=== PATIENT | female | born 1985 | race Caucasian/White ===

== ENCOUNTER 2018-10-14 15:09 | Emergency (ER) | payer MEDICARE, OTHER ==
[2018-10-14 15:19] VITALS: RESP 18; TEMP 97.8
[2018-10-14] MEDS ORDERED: SODIUM CHLORIDE 0.9% 1,000 ML IV STA ×2 (15:46)
[2018-10-14 16:15] LABS: Basophils % (A) 0 %; Eosinophils # (A) 0.1 k/uL (0-0.7); Eosinophils % (A) 1 %; HCT 47.1 % (34.0-46.0); HGB 15.1 gm/dL (11.4-16.0); Lymphocytes # (A) 1.6 k/uL (1.0-4.8); Lymphocytes % (A) 15 %; MCH 33.8 pg (25.0-35.0); MCHC 32.1 g/dL (31.0-37.0); MCV 105.3 fL (80.0-100.0); Macrocytosis Moderate; Mean Platelet Volume 7.9; Monocytes # (A) 0.5 k/uL (0-1.0); Monocytes % (A) 5 %; Neutrophils # (A) 8.3 k/uL (1.3-7.7); Neutrophils % (A) 79 %; Platelet Count 383 k/uL (150-450); RBC 4.47 m/uL (3.80-5.40); RDW 14.1 % (11.5-15.5); WBC 10.6 k/uL (3.8-10.6)
--- NOTE | 2018-10-14 16:18 | ED ---
Seizure HPI - General Chief Complaint: Seizure Stated Complaint: Seizure Time Seen by Provider: 10/14/18 15:26 Source: patient, RN notes reviewed, old records reviewed Mode of arrival: EMS Limitations: no limitations - History of Present Illness Initial Comments: Patient is a 33-year-old female with history of seizure disorder. She presents today after 2 seizures today. She states he quite some time. She denies any fevers or chills. She has had a slight cough. Patient reports she takes Lamictal and Dilantin. She's been taking her medications as prescribed. - Related Data Home Medications Medication Instructions Recorded Confirmed lamoTRIgine [LaMICtal] 200 mg PO BID 11/22/15 10/14/18 Phenytoin Chew [Dilantin Chew] 300 mg PO BID 05/02/16 10/14/18 Allergies Allergy/AdvReac Type Severity Reaction Status Date / Time No Known Allergies Allergy Verified 10/14/18 15:31 Review of Systems ROS Statement: Those systems with pertinent positive or pertinent negative responses have been documented in the HPI. ROS Other: All systems not noted in ROS Statement are negative. Past Medical History Past Medical History: COPD, GERD/Reflux, Musculoskeletal Disorder, Os teoarthritis (OA), Seizure Disorder Additional Past Medical History / Comment(s): BACK PAIN History of Any Multi-Drug Resistant Organisms: None Reported Past Surgical History: Tubal Ligation Additional Past Surgical History / Comment(s): TOOTH EXTRACTIONS(HAD BROKEN TEETH AFTER A FALL DURING A SEIZURE HAD THOSE TEETH REMOVED) Past Anesthesia/Blood Transfusion Reactions: No Reported Reaction Past Psychological History: Anxiety Smoking Status: Current every day smoker Past Alcohol Use History: None Reported Past Drug Use History: Marijuana - Past Family History Father Family Medical History: No Reported History (Father is 59-year-old has no major medical problems) Mother Family Medical History: No Reported History (Mother is 55-year-old has history of chronic low back pain.) Brother(s) Family Medical History: No Reported History (Patient has 2 brothers no major medical problems) Sister(s) Family Medical History: No Reported History (Patient has 2 sisters no major medical problems) Son(s) Family Medical History: No Reported History (Patient has a natural son and 2 adopted sons.) Daughter(s) Family Medical History: No Reported History (Patient has a biological daughter.) Additional Family Medical History / Comment(s): Paternal grandmother from compilations of diabetes. General Exam - General Exam Comments Initial Comments: This is a 33-year-old female. Alert and oriented and 3. She is somewhat postictal. Lethargic. Limitations: no limitations Head exam: Present: atraumatic, normocephalic, normal inspection Eye exam: Present: normal appearance, PERRL, EOMI. Absent: scleral icterus, conjunctival injection, periorbital swelling ENT exam: Present: normal exam, mucous membranes moist Neck exam: Present: normal inspection. Absent: tenderness, meningismus, lymphadenopathy Respiratory exam: Present: normal lung sounds bilaterally. Absent: respiratory distress, wheezes, rales, rhonchi, stridor Cardiovascular Exam: Present: regular rate, normal rhythm, normal heart sounds. Absent: systolic murmur, diastolic murmur, rubs, gallop, clicks GI/Abdominal exam: Present: soft, normal bowel sounds. Absent: distended, tenderness, guarding, rebound, rigid Extremities exam: Present: normal inspection, full ROM, normal capillary refill. Absent: tenderness, pedal edema, joint swelling, calf tenderness Back exam: Present: normal inspection Neurological exam: Present: alert, oriented X3, CN II-XII intact Psychiatric exam: Present: normal affect, normal mood Course Vital Signs 10/14/18 10/14/18 10/14/18 15:11 18:23 19:00 Temperature 97.8 F 97.8 F Pulse Rate 87 60 60 Respiratory 18 18 18 Rate Blood Pressure 125/67 106/61 106/61 O2 Sat by Pulse 96 97 97 Oximetry Medical Decision Making - Medical Decision Making Patient is a 33-year-old female who presents emergency Department after seizure. She is currently managing her seizures with Dilantin and Lamictal. Patient states that she hasn't taking her medicine as prescribed. Currently her Dilantin level is undetected and blood. Discussed that this could be consistent with noncompliant with medication. Patient's abdomen she is taking it. Patient lab work and x-rays and CT were otherwise unremarkable. Patient was discharged home with up with her neurologist. Discussed taking Dilantin appropriately. Given 1 dose here in ER. - Lab Data Result diagrams: 10/14/18 15:10 03/26/19 15:10 Lab Results 10/14/18 10/14/18 10/14/18 Range/Units 15:10 15:10 15:10 WBC 10.6 (3.8-10.6) k/uL RBC 4.47 (3.80-5.40) m/uL Hgb 15.1 (11.4-16.0) gm/dL Hct 47.1 H (34.0-46.0) % MCV 105.3 H (80.0-100.0) fL MCH 33.8 (25.0-35.0) pg MCHC 32.1 (31.0-37.0) g/dL RDW 14.1 (11.5-15.5) % Plt Count 383 (150-450) k/uL Neutrophils % 79 % Lymphocytes % 15 % Monocytes % 5 % Eosinophils % 1 % Basophils % 0 % Neutrophils # 8.3 H (1.3-7.7) k/uL Lymphocytes # 1.6 (1.0-4.8) k/uL Monocytes # 0.5 (0-1.0) k/uL Eosinophils # 0.1 (0-0.7) k/uL Basophils # 0.0 (0-0.2) k/uL Macrocytosis Moderate Sodium 139 (137-145) mmol/L Potassium 4.7 (3.5-5.1) mmol/L Chloride 109 H (98-107) mmol/L Carbon Dioxide 21 L (22-30) mmol/L Anion Gap 9 mmol/L BUN 11 (7-17) mg/dL Creatinine 0.51 L (0.52-1.04) mg/dL Est GFR (CKD-EPI)AfAm >90 (>60 ml/min/1.73 sqM) Est GFR (CKD-EPI)NonAf >90 (>60 ml/min/1.73 sqM) Glucose 89 (74-99) mg/dL Calcium 9.2 (8.4-10.2) mg/dL Total Bilirubin 0.7 (0.2-1.3) mg/dL AST 21 (14-36) U/L ALT 15 (9-52) U/L Alkaline Phosphatase 106 (38-126) U/L Total Protein 7.6 (6.3-8.2) g/dL Albumin 4.0 (3.5-5.0) g/dL Urine Color Urine Appearance (Clear) Urine pH (5.0-8.0) Ur Specific [place] (1.001-1.035) Urine Protein (Negative) Urine Glucose (UA) (Negative) Urine Ketones (Negative) Urine Blood (Negative) Urine Nitrite (Negative) Urine Bilirubin (Negative) Urine Urobilinogen (<2.0) mg/dL Ur Leukocyte Esterase (Negative) Urine RBC (0-5) /hpf Urine WBC (0-5) /hpf Ur Squamous Epith Cells (0-4) /hpf Urine Mucus (None) /hpf Urine Opiates Screen (NotDetected) Ur Oxycodone Screen (NotDetected) Urine Methadone Screen (NotDetected) Ur Propoxyphene Screen (NotDetected) Ur Barbiturates Screen (NotDetected) Phenytoin <3.0 ug/mL Lamotrigine 0.7 L (2.0-15.0) ug/mL U Tricyclic Antidepress (NotDetected) Ur Phencyclidine Scrn (NotDetected) Ur Amphetamines Screen (NotDetected) U Methamphetamines Scrn (NotDetected) U Benzodiazepines Scrn (NotDetected) Urine Cocaine Screen (NotDetected) U Marijuana (THC) Screen (NotDetected) Serum Alcohol <10 mg/dL 10/14/18 Range/Units 16:57 WBC (3.8-10.6) k/uL RBC (3.80-5.40) m/uL Hgb (11.4-16.0) gm/dL Hct (34.0-46.0) % MCV (80.0-100.0) fL MCH (25.0-35.0) pg MCHC (31.0-37.0) g/dL RDW (11.5-15.5) % Plt Count (150-450) k/uL Neutrophils % % Lymphocytes % % Monocytes % % Eosinophils % % Basophils % % Neutrophils # (1.3-7.7) k/uL Lymphocytes # (1.0-4.8) k/uL Monocytes # (0-1.0) k/uL Eosinophils # (0-0.7) k/uL Basophils # (0-0.2) k/uL Macrocytosis Sodium (137-145) mmol/L Potassium (3.5-5.1) mmol/L Chloride (98-107) mmol/L Carbon Dioxide (22-30) mmol/L Anion Gap mmol/L BUN (7-17) mg/dL Creatinine (0.52-1.04) mg/dL Est GFR (CKD-EPI)AfAm (>60 ml/min/1.73 sqM) Est GFR (CKD-EPI)NonAf (>60 ml/min/1.73 sqM) Glucose (74-99) mg/dL Calcium (8.4-10.2) mg/dL Total Bilirubin (0.2-1.3) mg/dL AST (14-36) U/L ALT (9-52) U/L Alkaline Phosphatase (38-126) U/L Total Protein (6.3-8.2) g/dL Albumin (3.5-5.0) g/dL Urine Color Yellow Urine Appearance Turbid H (Clear) Urine pH 5.5 (5.0-8.0) Ur Specific [place] 1.031 (1.001-1.035) Urine Protein Trace H (Negative) Urine Glucose (UA) Negative (Negative) Urine Ketones 2+ H (Negative) Urine Blood Trace H (Negative) Urine Nitrite Negative (Negative) Urine Bilirubin Negative (Negative) Urine Urobilinogen <2.0 (<2.0) mg/dL Ur Leukocyte Esterase Negative (Negative) Urine RBC 4 (0-5) /hpf Urine WBC 3 (0-5) /hpf Ur Squamous Epith Cells 2 (0-4) /hpf Urine Mucus Many H (None) /hpf Urine Opiates Screen Not Detected (NotDetected) Ur Oxycodone Screen Not Detected (NotDetected) Urine Methadone Screen Not Detected (NotDetected) Ur Propoxyphene Screen Not Detected (NotDetected) Ur Barbiturates Screen Detected H (NotDetected) Phenytoin ug/mL Lamotrigine (2.0-15.0) ug/mL U Tricyclic Antidepress Not Detected (NotDetected) Ur Phencyclidine Scrn Not Detected (NotDetected) Ur Amphetamines Screen Not Detected (NotDetected) U Methamphetamines Scrn Not Detected (NotDetected) U Benzodiazepines Scrn Not Detected (NotDetected) Urine Cocaine Screen Not Detected (NotDetected) U Marijuana (THC) Screen Detected H (NotDetected) Serum Alcohol mg/dL 10/14/18 16:21 EKG shows normal sinus rhythm with sinus arrhythmia, possible left atrial enlargement. Borderline EKG. Ventricular rate of 76 bpm. NH interval is 140 ms. QRS duration 100 ms. QT QTC 394/[address] elevation or T-wave inversi on. - Radiology Data Radiology results: report reviewed Negative CT of the brain. Left maxillary sinusitis. No changes. Normal chest x-ray. Disposition Clinical Impression: Generalized seizure, Subtherapeutic serum dilantin level Disposition: HOME SELF-CARE Condition: Good Instructions (If sedation given, give patient instructions): Recurrent Seizures in Adults (ED) Additional Instructions: Patient advised to follow-up with your primary care physician and your neurologist. Continue to take her medications as prescribed. Return to emergency department if any alarming signs or symptoms occur. Is patient prescribed a controlled substance at d/c from ED?: No Referrals: Raiza Aguila MD [Primary Care Provider] - 1-2 days Time of Disposition: 18:24
[2018-10-14 16:23] LABS: ALT 15 U/L (9-52); AST 21 U/L (14-36); Alcohol <10 mg/dL; Alkaline Phosphatase 106 U/L (38-126); Anion Gap 9 mmol/L; Blood Urea Nitrogen 11 mg/dL (7-17); Calcium 9.2 mg/dL (8.4-10.2); Carbon Dioxide 21 mmol/L (22-30); Chloride 109 mmol/L (98-107); Glucose 89 mg/dL (74-99); Phenytoin (Dilantin) <3.0 ug/mL; Potassium 4.7 mmol/L (3.5-5.1); Sodium 139 mmol/L (137-145); Total Bilirubin 0.7 mg/dL (0.2-1.3); Total Protein 7.6 g/dL (6.3-8.2)
--- NOTE | 2018-10-14 17:17 | XR ---
EXAMINATION TYPE: XR chest 2V DATE OF EXAM: 10/14/2018 COMPARISON: NONE HISTORY: Seizure TECHNIQUE: Frontal and lateral views of the chest are obtained. FINDINGS: Heart and mediastinum are normal. Lungs are clear. Diaphragm is normal. Bony thorax appear s normal. IMPRESSION: Normal chest
--- NOTE | 2018-10-14 17:24 | CT ---
EXAMINATION TYPE: CT brain wo con DATE OF EXAM: 10/14/2018 COMPARISON: 11/22/2015 HISTORY: TANO Samuels CT DLP: 1082.4 mGycm. Automated Exposure Control for Dose Reduction was Utilized. TECHNIQUE: CT scan of the head is performed without contrast. FINDINGS: Ventricles and sulci appear normal. There is no mass effect nor midline shift. There is no sign of intracranial hemorrhage. Calvarium is intact. There is mucosal thickening left maxillary sinu s with apparent previous surgery. IMPRESSION: Negative CT scan of the brain. Left maxillary sinusitis. No change.
[2018-10-14] MEDS ORDERED: PHENYTOIN 50 MG CHEWABLE PO STA (18:20)
[2018-10-14 18:24] VITALS: BP 106/61; PULSE 60
[2018-10-14] MEDS ORDERED: PHENYTOIN ORAL SUSP 100 MG/4 ML CUP PO STA (18:36)
[2018-10-14 19:00] LABS: Appearance,Urine Turbid (Clear); Bilirubin,Urine Negative (Negative); Blood,Urine Trace (Negative); Color,Urine Yellow; Glucose,Urine (UA) Negative (Negative); Ketones,Urine 2+ (Negative); Leukocyte Esterase,Urine Negative (Negative); Mucus,Urine Many /hpf; Nitrite,Urine Negative (Negative); PH, Urine 5.5 (5.0-8.0); Protein,Urine Trace (Negative); RBC,Urine 4 /hpf (0-5); Specific Gravity,Urine 1.031 (1.001-1.035); Squamous Epithelial Cell,Urine 2 /hpf (0-4); Urobilinogen,Urine <2.0 mg/dL (<2.0)
[2018-10-14 19:01] LABS: Amphetamine Screen,Urine Not Detected (NotDetected); Barbiturate Screen,Urine Detected (NotDetected); Benzodiazepines Screen,Urine Not Detected (NotDetected); Cocaine Screen,Urine Not Detected (NotDetected); Methadone Screen, Urine Not Detected (NotDetected); Opiate Screen,Urine Not Detected (NotDetected); Oxycodone Screen, Urine Not Detected (NotDetected); Phencyclidine Screen,Urine Not Detected (NotDetected); Tricyclic Antidepressant,Urine Not Detected (NotDetected); Urn Cannabinoid Scrn Detected (NotDetected)
== END 2018-10-14 19:00 | disposition home or self-care (01) ==
LOC: EC 15:09
DX: G40.409 Other generalized epilepsy and epileptic syndromes, not intractable, without status epilepticus (principal); R79.89 Other specified abnormal findings of blood chemistry; F17.200 Nicotine dependence, unspecified, uncomplicated; Z79.899 Other long term (current) drug therapy; Z53.8 Procedure and treatment not carried out for other reasons
CPT/HCPCS: 36415; 93005; 80053; 80175; 80185; 85025; 81001; 80306; 71046; 70450; 99285; 96360; 96361 ×2; G0480; 80320

== ENCOUNTER 2019-02-21 02:11 | Emergency (ER) | payer MEDICARE, OTHER ==
[2019-02-21 02:21] VITALS: TEMP 98
[2019-02-21 02:45] LABS: Glucose,Whole Blood 104 mg/dL (75-99)
[2019-02-21] MEDS ORDERED: LORazepam 2 MG/ML INJ IV STA (02:59)
[2019-02-21] MEDS ORDERED: SODIUM CHLORIDE 0.9% 1,000 ML IV ONE (03:04)
--- NOTE | 2019-02-21 03:04 | ED ---
Seizure HPI - General Chief Complaint: Seizure Stated Complaint: Seizure Time Seen by Provider: 02/21/19 02:23 Source: patient, family (Significant other) Mode of arrival: ambulatory Limitations: no limitations - History of Present Illness Initial Comments: This patient is 33-year-old woman with history of seizure disorder who presents to be evaluated after she had 2 seizures tonight. The patient states that she takes Dilantin and Lamictal for her seizure disorder. She states she has been compliant with her regimen. The patient has approximately one seizure per month even when compliant with her medication. Tonight she had one seizure around 1 2:30 AM, and then had returned to baseline and gone back to sleep. At around 1:30 AM she had a another seizure, and has reportedly returned to baseline again. Patient denies any trauma. She is not having headache, fever or chills or any neurologic symptoms. The patient's significant other does state that she has been under a lot of stress and that this sometimes provokes her to have seizures. MD Complaint: seizure Onset/Timin -: hour(s) Description of Episode: loss of consciousness, tonic-clonic movement, post-event confusion Duration of Episode: 1 -: minutes(s) Witnessed: yes - by bystander Trauma: No Seizure History: known seizure disorder Place: home Possible Precipitating Event: stress Associated Symptoms: denies other symptoms Treatments Prior to Arrival: none - Related Data Home Medications Medication Instructions Recorded Confirmed lamoTRIgine [LaMICtal] 200 mg PO BID 11/22/15 10/14/18 Phenytoin Chew [Dilantin Chew] 300 mg PO BID 05/02/16 10/14/18 Allergies Allergy/AdvReac Type Severity Reaction Status Date / Time No Known Allergies Allergy Verified 02/21/19 02:20 Review of Systems ROS Statement: Those systems with pertinent positive or pertinent negative responses have been documented in the HPI. ROS Other: All systems not noted in ROS Statement are negative. Constitutional: Denies: fever, chills, weakness Eyes: Denies: eye pain, vision change Respiratory: Denies: cough, dyspnea Cardiovascular: Denies: chest pain, syncope Gastrointestinal: Denies: abdominal pain, vomiting, diarrhea Genitourinary: Denies: dysuria, hematuria Musculoskeletal: Denies: back pain Skin: Denies: rash Neurological: Denies: headache, weakness, numbness, paresthesias, confusion Past Medical History Past Medical History: COPD, GERD/Reflux, Musculoskeletal Disorder, Osteoarthritis (OA), Seizure Disorder Additional Past Medical History / Comment(s): BACK PAIN History of Any Multi-Drug Resistant Organisms: None Reported Past Surgical History: Tubal Ligation Additional Past Surgical History / Comment(s): TOOTH EXTRACTIONS(HAD BROKEN TEETH AFTER A FALL DURING A SEIZURE HAD THOSE TEETH REMOVED) Past Anesthesia/Blood Transfusion Reactions: No Reported Reaction Past Psychological History: Anxiety Smoking Status: Current every day smoker Past Alcohol Use History: None Reported Past Drug Use History: Marijuana - Past Family History Father Family Medical History: No Reported History (Father is 59-year-old has no major medical problems) Mother Family Medical History: No Reported History (Mother is 55-year-old has history of chronic low back pain.) Brother(s) Family Medical History: No Reported History (Patient has 2 brothers no major medical problems) Sister(s) Family Medical History: No Reported History (Patient has 2 sisters no major medical problems) Son(s) Family Medical History: No Reported History (Patient has a natural son and 2 adopted sons.) Daughter(s) Family Medical History: No Reported History (Patient has a biological daughter.) Additional Family Medical History / Comment(s): Paternal grandmother from compilations of diabetes. General Exam Limitations: no limitations General appearance: alert, in no apparent distress Head exam: Present: atraumatic, normocephalic Eye exam: Present: normal appearance, PERRL, EOMI. Absent: scleral icterus, conjunctival injection, nystagmus ENT exam: Present: normal oropharynx Neck exam: Present: normal inspection, full ROM. Absent: tenderness, meningis mus Respiratory exam: Present: normal lung sounds bilaterally. Absent: respiratory distress, wheezes, rales, rhonchi, stridor Cardiovascular Exam: Present: regular rate, normal rhythm, normal heart sounds. Absent: systolic murmur, diastolic murmur, rubs, gallop GI/Abdominal exam: Present: soft. Absent: distended, tenderness, guarding, rebound, rigid, mass Extremities exam: Present: normal inspection, normal capillary refill. Absent: pedal edema, calf tenderness Back exam: Present: normal inspection. Absent: CVA tenderness (R), CVA tenderness (L) Neurological exam: Present: alert, oriented X3, CN II-XII intact. Absent: motor sensory deficit Skin exam: Present: warm, dry, intact, normal color. Absent: rash Course Vital Signs 02/21/19 02/21/19 02:15 03:59 Temperature 98 F Pulse Rate 83 82 Respiratory 18 16 Rate Blood Pressure 123/73 135/74 O2 Sat by Pulse 97 97 Oximetry Medical Decision Making - Medical Decision Making Patient had a generalized tonic-clonic seizure in the department, that lasted for 45 seconds. The patient was given Ativan. - Lab Data Result diagrams: 02/21/19 02:44 02/21/19 02:44 Lab Results 02/21/19 02/21/19 02/21/19 Range/Units 02:44 02:44 02:44 WBC 8.6 (3.8-10.6) k/uL RBC 3.97 (3.80-5.40) m/uL Hgb 13.9 (11.4-16.0) gm/dL Hct 41.9 (34.0-46.0) % MCV 105.4 H (80.0-100.0) fL MCH 35.0 (25.0-35.0) pg MCHC 33.2 (31.0-37.0) g/dL RDW 14.8 (11.5-15.5) % Plt Count 310 (150-450) k/uL Neutrophils % 78 % Lymphocytes % 15 % Monocytes % 5 % Eosinophils % 1 % Basophils % 0 % Neutrophils # 6.7 (1.3-7.7) k/uL Lymphocytes # 1.3 (1.0-4.8) k/uL Monocytes # 0.4 (0-1.0) k/uL Eosinophils # 0.1 (0-0.7) k/uL Basophils # 0.0 (0-0.2) k/uL Macrocytosis Moderate Sodium 140 (137-145) mmol/L Potassium 3.8 (3.5-5.1) mmol/L Chloride 106 (98-107) mmol/L Carbon Dioxide 26 (22-30) mmol/L Anion Gap 8 mmol/L BUN 10 (7-17) mg/dL Creatinine 0.66 (0.52-1.04) mg/dL Est GFR (CKD-EPI)AfAm >90 (>60 ml/min/1.73 sqM) Est GFR (CKD-EPI)NonAf >90 (>60 ml/min/1.73 sqM) Glucose 102 H (74-99) mg/dL POC Glucose (mg/dL) 104 H (75-99) mg/dL POC Glu [employer] ID [place] Calcium 8.6 (8.4-10.2) mg/dL Total Bilirubin 0.2 (0.2-1.3) mg/dL AST 14 (14-36) U/L ALT 8 L (9-52) U/L Alkaline Phosphatase 116 (38-126) U/L Total Protein 7.0 (6.3-8.2) g/dL Albumin 3.6 (3.5-5.0) g/dL Phenytoin 9.0 ug/mL - EKG Data -: EKG Interpreted by [facility] EKG shows normal: sinus rhythm, axis (Normal), intervals (Normal), ST-T waves (Normal) Rate: normal (Rate 81 bpm) Interpretation: other (Possible old anterior infarct) Disposition Clinical Impression: Generalized seizure Disposition: HOME SELF-CARE Condition: Good Instructions (If sedation given, give patient instructions): Recurrent Seizures in Adults (ED) Is patient prescribed a controlled substance at d/c from ED?: No Referrals: Raiza Aguila MD [Primary Care Provider] - 1-2 days
[2019-02-21 03:44] LABS: Basophils % (A) 0 %; Eosinophils # (A) 0.1 k/uL (0-0.7); Eosinophils % (A) 1 %; HCT 41.9 % (34.0-46.0); HGB 13.9 gm/dL (11.4-16.0); Lymphocytes # (A) 1.3 k/uL (1.0-4.8); Lymphocytes % (A) 15 %; MCHC 33.2 g/dL (31.0-37.0); MCV 105.4 fL (80.0-100.0); Macrocytosis Moderate; Mean Platelet Volume 7.1; Monocytes # (A) 0.4 k/uL (0-1.0); Monocytes % (A) 5 %; Neutrophils # (A) 6.7 k/uL (1.3-7.7); Neutrophils % (A) 78 %; Platelet Count 310 k/uL (150-450); RBC 3.97 m/uL (3.80-5.40); RDW 14.8 % (11.5-15.5); WBC 8.6 k/uL (3.8-10.6)
[2019-02-21 03:45] LABS: ALT 8 U/L (9-52); AST 14 U/L (14-36); African American GFR (CKD) >90 (>60 ml/min/1.73 sqM); Albumin 3.6 g/dL (3.5-5.0); Alkaline Phosphatase 116 U/L (38-126); Anion Gap 8 mmol/L; Blood Urea Nitrogen 10 mg/dL (7-17); Calcium 8.6 mg/dL (8.4-10.2); Carbon Dioxide 26 mmol/L (22-30); Chloride 106 mmol/L (98-107); Glucose 102 mg/dL (74-99); Potassium 3.8 mmol/L (3.5-5.1); Sodium 140 mmol/L (137-145); Total Bilirubin 0.2 mg/dL (0.2-1.3)
[2019-02-21 04:00] VITALS: RESP 16
[2019-02-21] MEDS ORDERED: PHENYTOIN SODIUM INJ 50 MG/ML 2 ML VIAL IV STA (04:04)
[2019-02-21] MEDS ORDERED: PHENYTOIN SODIUM INJ 400 MG in SODIUM CHLORIDE 0.9% 100 ML IVPB STA (04:06)
[2019-02-21 05:47] VITALS: BP 130/70; PULSE 87
== END 2019-02-21 05:43 | disposition home or self-care (01) ==
LOC: EC 02:11
DX: G40.409 Other generalized epilepsy and epileptic syndromes, not intractable, without status epilepticus (principal); F17.200 Nicotine dependence, unspecified, uncomplicated; Z79.899 Other long term (current) drug therapy
CPT/HCPCS: 36415; 80053; 80175; 80185; 85025; 99284; 96365; 96375; 96361; J2060; J1165

== ENCOUNTER 2022-12-04 19:00 | Emergency (ER) | payer MEDICARE, OTHER ==
[2022-12-04 19:26] VITALS: BP 158/96; PULSE 81; RESP 18; TEMP 97.3
--- NOTE | 2022-12-04 20:23 | ED ---
Extremity Problem HPI - General Source: patient, RN notes reviewed Mode of arrival: ambulatory Limitations: no limitations - History of Present Illness MD Complaint: extremity swelling <Jennifer Rivas - Last Filed: 12/04/22 20:23> - General Source: patient, RN notes reviewed Mode of arrival: ambulatory Limitations: no limitations <Marcie Foster - Last Filed: 12/04/22 23:11> - General Chief complaint: Extremity Problem,Nontraumatic Stated complaint: RT LEG BLOOD FLOW COMP Time Seen by Provider: 12/04/22 20:20 - History of Present Illness Initial comments: This is a 37-year-old female who presents to the emergency department for right leg swelling. She is concerned about a DVT. Denies any history of blood clots. Also denies any recent injuries, chest pain, or shortness of breath. (Jennifer Rivas) 37-year-old female presents to the emergency department with chief complaint of right lower leg swelling. She states that it started earlier today. She states that she occasionally gets swelling around the knee but has not had swelling going down the leg like this before. She states it is mildly painful at the knee. The leg is not erythematous. Denies history of DVT. Denies fever, chills. Denies shortness of breath. Past medical history includes epilepsy. (Marcie Foster) - Related Data Home Medications Medication Instructions Recorded Confirmed lamoTRIgine [LaMICtal] 200 mg PO BID 11/22/15 10/14/18 Phenytoin Chew [Dilantin Chew] 300 mg PO BID 05/02/16 10/14/18 Allergies Allergy/AdvReac Type Severity Reaction Status Date / Time No Known Allergies Allergy Verified 12/04/22 19:22 Review of Systems ROS Other: All systems not noted in ROS Statement are negative. <Jennifer Rivas - Last Filed: 12/04/22 20:23> ROS Other: All systems not noted in ROS Statement are negative. <Marcie Foster - Last Filed: 12/04/22 23:11> ROS Statement: Those systems with pertinent positive or pertinent negative responses have been documented in the HPI. Past Medical History Past Medical History: COPD, GERD/Reflux, Musculoskeletal Disorder, Osteoarthritis (OA), Seizure Disorder Additional Past Medical History / Comment(s): BACK PAIN History of Any Multi-Drug Resistant Organisms: None Reported Past Surgical History: Tubal Ligation Additional Past Surgical History / Comment(s): TOOTH EXTRACTIONS(HAD BROKEN TEETH AFTER A FALL DURING A SEIZURE HAD THOSE TEETH REMOVED) Past Anesthesia/Blood Transfusion Reactions: No Reported Reaction Past Psychological History: Anxiety Smoking Status: Current every day smoker Past Alcohol Use History: None Reported Past Drug Use History: Marijuana - Past Family History Father Family Medical History: No Reported History (Father is 59-year-old has no major medical problems) Mother Family Medical History: No Reported History (Mother is 55-year-old has history of chronic low back pain.) Brother(s) Family Medical History: No Reported History (Patient has 2 brothers no major medical problems) Sister(s) Family Medical History: No Reported History (Patient has 2 sisters no major medical problems) Son(s) Family Medical History: No Reported History (Patient has a natural son and 2 adopted sons.) Daughter(s) Family Medical History: No Reported History (Patient has a biological daughter.) Additional Family Medical History / Comment(s): Paternal grandmother from compilations of diabetes. <Jennifer Rivas - Last Filed: 12/04/22 20:23> General Exam Limitations: no limitations <Jennifer Rivas - Last Filed: 12/04/22 20:23> Limitations: no limitations General appearance: alert, in no apparent distress Head exam: Present: atraumatic, normocephalic, normal inspection Eye exam: Present: normal appearance ENT exam: Present: normal exam, mucous membranes moist Neck exam: Present: normal inspection. Absent: tenderness, meningismus, lympha denopathy Respiratory exam: Present: normal lung sounds bilaterally. Absent: respiratory distress, wheezes, rales, rhonchi, stridor Cardiovascular Exam: Present: regular rate, normal rhythm, normal heart sounds. Absent: systolic murmur, diastolic murmur, rubs, gallop, clicks GI/Abdominal exam: Present: soft, normal bowel sounds. Absent: distended, tenderness, guarding, rebound, rigid Extremities exam: Present: other (Right lower extremity edema, full ROM, DP pulses 2+, mild tenderness at the knee joint, popliteal cyst palpable at complete extension of right extremity) Back exam: Present: normal inspection Neurological exam: Present: alert, oriented X3 Psychiatric exam: Present: normal affect, normal mood Skin exam: Present: warm, dry, intact, normal color. Absent: rash <Marcie Foster - Last Filed: 12/04/22 23:11> - General Exam Comments Initial Comments: Visual Physical Exam Vital signs reviewed General: Well-appearing, nontoxic, no acute distress. Head: Normocephalic, atraumatic Eyes: PERRLA, EOMI ENT: Airway patent Chest: Nonlabored breathing Skin: No visual rash, normal skin tone Neuro: Alert and oriented 3 Musculoskeletal: No gross abnormalities (Vogley,Jennifer) Course Vital Signs 12/04/22 19:23 Temperature 97.3 F L Pulse Rate 81 Respiratory 18 Rate Blood Pressure 158/96 O2 Sat by Pulse 98 Oximetry Medical Decision Making <CaseychristenMarcie dawkins - Last Filed: 12/04/22 23:11> - Medical Decision Making Was pt. sent in by a medical professional or institution (, PA, [employer], urgent care, hospital, or usp...) When possible be specific @ -No Did you speak to anyone other than the patient for history (EMS, parent, family, police, friend...)? What history was obtained from this source @ -No Did you review nursing and triage notes (agree or disagree)? Why? @ -I reviewed and agree with nursing and triage notes Were old charts reviewed (outside hosp., previous admission, EMS record, old EKG, old radiological studies, urgent care reports/EKG's, usp records)? Report findings @ -No old charts were reviewed Differential Diagnosis (chest pain, altered mental status, abdominal pain women, abdominal pain men, vaginal bleeding, weakness, fever, dyspnea, syncope, headache, dizziness, GI bleed, back pain, seizure, CVA, palpatations, mental health, musculoskeletal)? @ -DVT, cellulitis, heart failure, liver failure, this list is not all i nclusive EKG interpreted by me (3pts min.). @ -None X-rays interpreted by me (1pt min.). @ -Chest x-ray obtained which show no acute cardiopulmonary process CT interpreted by me (1pt min.). @ -None done U/S interpreted by me (1pt. min.). @ -Ultrasound of right lower extremity showed no DVT, large popliteal cyst What testing was considered but not performed or refused? (CT, X-rays, U/S, labs)? Why? @ -None What meds were considered but not given or refused? Why? @ -None Did you discuss the management of the patient with other professionals (bakari caal i.e. , PA, [employer], lab, RT, psych nurse, social science teacher, visual arts teacher, teacher, chief revenue officer, residential case manager)? Give summary @ -No Was smoking cessation discussed for >3mins.? @ -No Was critical care preformed (if so, how long)? @ -No Were there social determinants of health that impacted care today? How? (Homelessness, low income, unemployed, alcoholism, drug addiction, transportation, low edu. Level, literacy, decrease access to med. care, nursing home, rehab)? @ -No Was there de-escalation of care discussed even if they declined (Discuss DNR or withdrawal of care, Hospice)? DNR status @ -No What co-morbidities impacted this encounter? (DM, HTN, Smoking, COPD, CAD, Cancer, CVA, ARF, Chemo, Hep., AIDS, mental health diagnosis, sleep apnea, morbid obesity)? @ -None Was patient admitted / discharged? Hospital course, mention meds given and route, prescriptions, significant lab abnormalities, going to OR and other pertinent info. @ -[Patient presented to emergency department chief complaint of right leg swelling 1 day. Patient states that she has tenderness on the knee. Right lower extremity, on examination, showed pitting edema, nonerythematous. no edema to the left. Right lower extremity showed no DVT, large popliteal cyst. Chest x-ray was obtained which showed no acute cardiopulmonary process. Further workup was going to be obtained including blood work to rule out CHF, liver failure. There was no evidence of infectious process. Dr. Gerber was going to evaluate the patient. patient did not want to wait any longer and left AMA. Undiagnosed new problem with uncertain prognosis? @ -No Drug Therapy requiring intensive monitoring for toxicity (Heparin, Nitro, Insulin, Cardizem)? @ -No Were any procedures done? @ -No Diagnosis/symptom? @ -Right lower extremity swelling Acute, or Chronic, or Acute on Chronic? @ -Acute Uncomplicated (without systemic symptoms) or Complicated (systemic symptoms)? @ -Uncomplicated Side effects of treatment? @ -No Exacerbation, Progression, or Severe Exacerbation? @ -No Poses a threat to life or bodily function? How? (Chest pain, USA, LA, pneumonia, PE, COPD, DKA, ARF, appy, cholecystitis, CVA, Diverticulitis, Homicidal, Suicidal, threat to staff... and all critical care pts) @ -No (Marcie Foster) Disposition <Jennifer Rivas - Last Filed: 12/04/22 20:23> Is patient prescribed a controlled substance at d/c from ED?: No Time of Disposition: 22:28 <Marcie Foster - Last Filed: 12/04/22 23:11> Clinical Impression: Leg edema, right Disposition: Left Against Medical Advice Condition: Stable Additional Instructions: You are leaving against medical advise. Please return to the Emergency Department if symptoms worsen or any other concerns. Referrals: Raiza Aguila MD [Primary Care Provider] - 1-2 days
--- NOTE | 2022-12-04 20:35 | US ---
EXAMINATION TYPE: US venous doppler duplex LE RT DATE OF EXAM: 12/04/2022 8:04 PM COMPARISON: NONE CLINICAL INDICATION: Female, 37 years old with history of Right leg swelling; Right calf swelling and pain. Rt knee is also in pain SIDE PERFORMED: Right TECHNIQUE: The lower extremity deep venous system is examined utilizing real time linear array sonog sendy with graded compression, doppler sonography and color-flow sonography. VESSELS IMAGED: Common Femoral Vein Deep Femoral Vein Greater Saphenous Vein * Femoral Vein Popliteal Vein Small Saphenous Vein * Proximal Calf Veins (* superficial vessels) Right Leg: Negative for DVT. Large fluid collection behind knee seen measuring 7.8 x 5.5 x 2.5cm. Ly mph node seen in prox thigh area Grayscale, color doppler, spectral doppler imaging performed of the deep veins of the right lower ext remity. There is normal flow, compressibility, vascular waveforms. IMPRESSION: No acute DVT in the right lower extremity. Fairly large sized popliteal cyst is noted.
--- NOTE | 2022-12-04 22:00 | XR ---
EXAMINATION TYPE: XR chest 2V DATE OF EXAM: 12/04/2022 COMPARISON: Chest x-ray 2019 HISTORY: Swelling and edema. TECHNIQUE: Frontal and lateral views of the chest are obtained. FINDINGS: There is no suspicious focal air space opacity, pleural effusion, or pneumothorax seen. T he cardiac silhouette size is stable and within normal limits. The osseous structures are intact. IMPRESSION: No acute process. No significant change from prior study.
== END 2022-12-04 22:20 | disposition left against medical advice (07) ==
LOC: EC 19:00
DX: R22.41 Localized swelling, mass and lump, right lower limb (principal); M71.21 Synovial cyst of popliteal space [Baker], right knee; J44.9 Chronic obstructive pulmonary disease, unspecified; F41.9 Anxiety disorder, unspecified; F17.200 Nicotine dependence, unspecified, uncomplicated; F12.90 Cannabis use, unspecified, uncomplicated; Z79.899 Other long term (current) drug therapy; Z53.29 Procedure and treatment not carried out because of patient's decision for other reasons
CPT/HCPCS: 71046; 99284